=== PATIENT | female | born 1985 | race Hispanic/Latino ===

== ENCOUNTER 2017-02-27 11:49 | Emergency (ER) | payer SELFPAY ==
[2017-02-27 12:17] LABS: Basophils % (Auto) 0.6 % (0.0-1.8); Eosinophils % (Auto) 2.2 % (0.0-4.3); Hematocrit 40.9 % (30.3-42.9); Hemoglobin 13.8 gm/dl (10.1-14.3); Mean Corpuscular HGB Conc 34 % (30-34); Mean Corpuscular Hemoglobin 31 pg (28-32); Mean Corpuscular Volume 93 fl (79-97); Platelet Count 502 K/mm3 (140-440); Red Blood Count 4.42 M/mm3 (3.65-5.03); Red Cell Distribution Width 12.4 % (13.2-15.2); White Blood Count 7.5 K/mm3 (4.5-11.0)
[2017-02-27 12:37] LABS: Anion Gap 19 mmol/L; Blood Urea Nitrogen 8 mg/dL (7-17); Calcium 9.4 mg/dL (8.4-10.2); Carbon Dioxide 25 mmol/L (22-30); Chloride 99.1 mmol/L (98-107); Glucose 105 mg/dL (65-100); Potassium 3.9 mmol/L (3.6-5.0); Sodium 139 mmol/L (137-145)
[2017-02-27] MEDS ORDERED: TORADOL IV ONE ×2 (13:14→17:12)
[2017-02-27] MEDS ORDERED: NACL 0.9% 1000 ML 1,000 ML IV ONE (13:14)
[2017-02-27] MEDS ORDERED: DUONEB *Not for PRN Use IH ONE (13:14)
--- NOTE | 2017-02-27 13:24 | Emergency Department Report ---
ED Chest Pain HPI - General Chief Complaint: Chest Pain Stated Complaint: CHEST PAIN/WEAK/HEADACHE Time Seen by Provider: 02/27/17 13:02 Source: patient Mode of arrival: Ambulatory Limitations: No Limitations - History of Present Illness Initial Comments: 31-year-old female with several days of URI type symptoms. Patient complains of achiness all over cough with productive green sputum and some right-sided chest pain. The symptoms have worsened over the last few days. In addition she complains of a mild headache. Denies any fevers but does have some mild chills. She states she has some mild difficult breathing. She is a heavy smoker. MD Complaint: chest pain -: Gradual Onset: during rest Pain Location: right chest Pain Radiation: none Severity: mild Quality: sharp Improves With: nothing Worsens With: nothing Context: recent illness re: dyspnea. denies: nausea, vomting, diaphoresis Other Symptoms: cough. denies: fever, syncope, rash, acid taste in mouth, leg swelling, palpitations, burping Treatments Prior to Arrival: none - Related Data Previous Rx's Medication Instructions Recorded Last Taken Type Famotidine [Pepcid] 20 mg PO BID #40 tablet 03/15/15 Unknown Rx Ondansetron [Zofran ODT TAB] 8 mg PO Q8HR #20 tab.rapdis 03/15/15 Unknown Rx Ibuprofen [Motrin] 800 mg PO Q8HR PRN #20 tablet 05/16/16 05/19/16 Rx Acetaminophen/Codeine [Tylenol #3] 1 tab PO Q8H PRN #9 tablet 05/19/16 Unknown Rx Docusate Sodium [Colace CAP] 100 mg PO TID PRN #21 capsule 05/19/16 Unknown Rx Polyethylene Glycol 3350 [Miralax 17 gm PO QDAY PRN #14 packet 05/19/16 Unknown Rx 3350] Albuterol Sulfate [Proair 90 mcg IH Q4HR PRN #1 aer.pow.ba 02/27/17 Unknown Rx Respiclick] Ibuprofen [Motrin] 600 mg PO Q8H PRN #30 tablet 02/27/17 Unknown Rx predniSONE [Deltasone] 40 mg PO QDAY #8 tab 02/27/17 Unknown Rx traMADol [Ultram 50 MG tab] 50 mg PO Q6HR PRN #20 tablet 02/27/17 Unknown Rx Allergies Allergy/AdvReac Type Severity Reaction Status Date / Time iodine Allergy Unknown Verified 03/15/15 10:05 medroxyprogesterone acetate Allergy Seizure Verified 03/15/15 10:05 [From Depo-Provera] metoclopramide HCl AdvReac DYSTONIC Verified 03/15/15 10:05 [From Reglan] REACTION Heart Score - HEART Score History: Slightly suspicious EKG: Normal Age: < 45 Risk factors: No known risk factors Troponin: < normal limit HEART Score: 0 ED Review of Systems ROS: Stated complaint: CHEST PAIN/WEAK/HEADACHE Other details as noted in HPI Comment: All other systems reviewed and negative Constitutional: denies: chills, fever Eyes: denies: eye pain, eye discharge, vision change ENT: denies: ear pain, throat pain Respiratory: denies: cough, shortness of breath, wheezing Cardiovascular: denies: chest pain, palpitations Endocrine: no symptoms reported Gastrointestinal: denies: abdominal pain, nausea, diarrhea Genitourinary: denies: urgency, dysuria, discharge Musculoskeletal: denies: back pain, joint swelling, arthralgia Skin: denies: rash, lesions Neurological: denies: headache, weakness, paresthesias Psychiatric: denies: anxiety, depression Hematological/Lymphatic: denies: easy bleeding, easy bruising ED Past Medical Hx - Past Medical History Previous Medical History?: Yes Hx Headaches / Migraines: Yes Hx Seizures: Yes Additional medical history: GASTROPARESIS. BRAIN ANEURYSM - Surgical History Past Surgical History?: Yes Hx Cholecystectomy: Yes Additional Surgical History: TONSILLECTOMY - Social History Smoking Status: Current Every Day Smoker Substance Use Type: None - Medications Home Medications: Home Medications Medication Instructions Recorded Confirmed Last Taken Type Famotidine [Pepcid] 20 mg PO BID #40 tablet 03/15/15 Unknown Rx Ondansetron [Zofran ODT TAB] 8 mg PO Q8HR #20 tab.rapdis 03/15/15 Unknown Rx Ibuprofen [Motrin] 800 mg PO Q8HR PRN #20 tablet 05/16/16 05/19/16 Rx Acetaminophen/Codeine [Tylenol #3] 1 tab PO Q8H PRN #9 tablet 05/19/16 Unknown Rx Docusate Sodium [Colace CAP] 100 mg PO TID PRN #21 capsule 11/21/16 Unknown Rx Polyethylene Glycol 3350 [Miralax 17 gm PO QDAY PRN #14 packet 05/19/16 Unknown Rx 3350] Albuterol Sulfate [Proair 90 mcg IH Q4HR PRN #1 aer.pow.ba 02/27/17 Unknown Rx Respiclick] Ibuprofen [Motrin] 600 mg PO Q8H PRN #30 tablet 02/27/17 Unknown Rx predniSONE [Deltasone] 40 mg PO QDAY #8 tab 02/27/17 Unknown Rx traMADol [Ultram 50 MG tab] 50 mg PO Q6HR PRN #20 tablet 02/27/17 Unknown Rx ED Physical Exam - General Limitations: No Limitations General appearance: alert, in no apparent distress - Head Head exam: Present: atraumatic, normocephalic - Eye Eye exam: Present: normal appearance. Absent: scleral icterus, conjunctival injection - ENT ENT exam: Present: mucous membranes moist - Neck Neck exam: Present: normal inspection - Respiratory Respiratory exam: Present: normal lung sounds bilaterally, wheezes. Absent: respiratory distress, rales - Cardiovascular Cardiovascular Exam: Present: regular rate, normal rhythm, normal heart sounds. Absent: systolic murmur, diastolic murmur, rubs, gallop - GI/Abdominal GI/Abdominal exam: Present: soft, normal bowel sounds. Absent: distended, tenderness - Extremities Exam Extremities exam: Present: normal inspection - Back Exam Back exam: Present: normal inspection - Neurological Exam Neurological exam: Present: alert, oriented X3. Absent: CN II-XII intact, motor sensory deficit, reflexes normal - Psychiatric Psychiatric exam: Present: normal affect, normal mood - Skin Skin exam: Present: warm, dry, intact, normal color. Absent: rash ED Course Vital Signs 02/27/17 02/27/17 02/27/17 11:52 14:05 14:14 Temperature 99.3 F Pulse Rate 85 Pulse Rate [ 80 84 Bilateral Upper Lobe] Respiratory 18 Rate Respiratory 18 18 Rate [Bilateral Upper Lobe] Blood Pressure 129/78 Blood Pressure [Left] O2 Sat by Pulse 100 Oximetry 02/27/17 02/27/17 02/27/17 14:15 14:17 15:00 Temperature Pulse Rate 96 H 128 H Pulse Rate [ Bilateral Upper Lobe] Respiratory 18 18 18 Rate Respiratory Rate [Bilateral Upper Lobe] Blood Pressure Blood Pressure 135/86 132/71 [Left] O2 Sat by Pulse 100 100 100 Oximetry 02/27/17 02/27/17 16:39 18:00 Temperature Pulse Rate 115 H 98 H Pulse Rate [ Bilateral Upper Lobe] Respiratory 18 18 Rate Respiratory Rate [Bilateral Upper Lobe] Blood Pressure Blood Pressure 116/60 104/52 [Left] O2 Sat by Pulse 99 99 Oximetry ED Medical Decision Making - Lab Data Result diagrams: 02/27/17 12:06 02/27/17 12:06 Laboratory Results - last 24 hr 02/27/17 02/27/17 02/27/17 12:06 12:06 12:06 WBC 7.5 RBC 4.42 Hgb 13.8 Hct 40.9 MCV 93 MCH 31 MCHC 34 RDW 12.4 L Plt Count 502 H Lymph % (Auto) 14.5 [place] % (Auto) 11.5 H Eos % (Auto) 2.2 Baso % (Auto) 0.6 Lymph # 1.1 L [place] # 0.9 H Eos # 0.2 Baso # 0.0 Seg Neutrophils % 71.2 H Seg Neutrophils # 5.4 Sodium 139 Potassium 3.9 Chloride 99.1 Carbon Dioxide 25 Anion Gap 19 BUN 8 Creatinine 0.5 L Estimated GFR > 60 BUN/Creatinine Ratio 16.00 Glucose 105 H Calcium 9.4 Troponin T < 0.010 HCG, Qual Negative - EKG Data -: EKG Interpreted by Me - EKG Data 02/27/17 13:23 Sinus rhythm rate 88 and normal axis normal intervals and no ST-T wave changes - Radiology Data Radiology results: report reviewed, image reviewed - Medical Decision Making 31-year-old female with likely URI. Patient has multiple symptoms consistent with URI. She does have some mild right-sided chest pain. Plan check chest x- ray. I do not feel she has a PE or any coronary symptoms. She is a smoker but otherwise has no other risk factors. Plan to treat with Toradol and nebulizer treatments for the wheezing. Likely place patient on inhalers and outpatient. Given persistent tachycardia after treatment with albuterol nebulizers, decision was made to VQ the patient. Nuclear study was low probability for PE. Patient's tachycardia resolved after albuterol worn off. Plan discharge the patient with albuterol steroids and pain medication. Portions of this chart were dictated with dictation software. There may be dictation errors contained within this note. Critical care attestation.: If time is entered above; I have spent that time in minutes in the direct care of this critically ill patient, excluding procedure time. ED Disposition Clinical Impression: Asthma, Viral syndrome Disposition: TO HOME OR SELFCARE Is pt being admited?: No Condition: Stable Instructions: Asthma (ED) Prescriptions: Albuterol Sulfate [Proair Respiclick] 90 mcg IH Q4HR PRN #1 aer.pow.ba PRN Reason: Wheezing Ibuprofen [Motrin] 600 mg PO Q8H PRN #30 tablet PRN Reason: Pain predniSONE [Deltasone] 40 mg PO QDAY #8 tab traMADol [Ultram 50 MG tab] 50 mg PO Q6HR PRN #20 tablet PRN Reason: Pain Referrals: PRIMARY CARE, [Primary Care Provider] - 3-5 Days
--- NOTE | 2017-02-27 13:53 | XRay Report ---
ROUTINE CHEST, TWO VIEWS: HISTORY: Cough, chest pain. The trachea, heart, mediastinal contour, lung cordova and bony thorax are unremarkable. IMPRESSION: Unremarkable chest x-ray.
[2017-02-27] MEDS ORDERED: ZOFRAN ONE (14:15)
[2017-02-27] MEDS ORDERED: TORADOL ONE (17:17)
--- NOTE | 2017-02-27 19:48 | Nuclear Medicine Report ---
FINAL REPORT EXAM: NM LUNG SCAN PERF/VENT HISTORY: shortness of breath, chest pain . TECHNIQUE: Ventilation-perfusion scan. 5 millicuries of technetium 99m MAA was intravenously administered for perfusion imaging and 15 millicuries of Xenon 133 was administered for ventilation imaging. PRIORS: None. FINDINGS: Ventilation images show symmetric ventilation to lungs. There is no air trapping. Perfusion images show no segmental or subsegmental perfusion abnormalities. IMPRESSION: Low probability for pulmonary embolism.
[2017-02-27] MEDS ORDERED: ULTRAM PO ONE (20:11)
[2017-02-27 21:27] LABS: Bilirubin,Urine NEG (Negative); Blood,Urine SM (Negative); Ketones,Urine NEG (Negative); Leukocyte Esterase,Urine NEG (Negative); Nitrite,Urine NEG (Negative); Protein,Urine <15 mg/dL mg/dL (Negative); Urobilinogen,Urine < 2.0 mg/dL (<2.0)
[2017-02-27 22:48] VITALS: BP 118/72
== END 2017-02-27 22:20 | disposition home or self-care (01) ==
LOC: ED 11:49
DX: J45.909 Unspecified asthma, uncomplicated (principal); B34.9 Viral infection, unspecified; G43.909 Migraine, unspecified, not intractable, without status migrainosus; F17.200 Nicotine dependence, unspecified, uncomplicated
CPT/HCPCS: 36415; 71020; 78582; 80048; 81001; 84484; 84703; 85025; 93005; 93010; 94640; 96361; 96374; 96376; 99285; A9540; A9558; J1885; J2405; J7030